=== PATIENT | female | born 1985 | race Two or more races ===

== ENCOUNTER 2024-09-06 09:30 | Outpatient (RCR) | payer MEDICAID, SELFPAY ==
--- NOTE | 2024-08-26 09:10 | PT.OIERPT ---
PT OP Initial Eval Patient Information Outpatient Physical Therapy Treatment Date: 08/26/24 Visit Reasons: CARPAL TUNNEL LEFT HAND Medical Diagnosis: G56.02 Treatment Dx #1: Left Hand Pain Treatment Dx #2: Left Hand Weakness Start of Care: 08/26/24 Date of Onset: 06/25/24 Smoking Status Smoking Status: Never smoker Initial Assessment Subjective: Pt is a 38 y/o female s/p left carpal tunnel release 06/25/24. Pt still has pain (5/10) and weakness. 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 Objective: Left Wrist AROM: all motions are WFL with end pain into extension Left Wrist MMTs: grossly 3/5 Color Card Maker Strength L: 25 lbs R: 80 lbs Gutierrez Pinch L: 8 lbs R: 12 lbs Palpation: TTP mild scar adhesion Assessment: Pt demonstrate left wrist pain and weakness s/p surgery leading to difficulty with ADLs. 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
--- NOTE | 2024-09-01 10:11 | PT.ODAYNRPT ---
PT Outpatient Daily Note OP Daily Note Outpatient Physical Therapy Treatment Date: 09/01/24 Visit Reasons: CARPAL TUNNEL LEFT HAND Subjective: Pt's left hand feels okay. Pt still has sensitivity when using her hand for chores or functional tasks. Objective: Please see flow chart for list of ther ex performed Assessment: tolerate exercises with minimal pain Plan: Continue with PT Length of Time (minutes) of Treatment: 30 Minutes Procedure Charges Therapeutic Exercise 30 minutes: Yes
--- NOTE | 2024-09-06 13:08 | PT.ODAYNRPT ---
PT Outpatient Daily Note OP Daily Note Outpatient Physical Therapy Treatment Date: 09/06/24 Visit Reasons: CARPAL TUNNEL LEFT HAND Subjective: Pt's hand was mildly sore after last session. No new concerns to report. Pt felt that yellow resistance was easy Objective: Please see flow chart for list of ther ex performed Assessment: progress all of patient's hand exercises to red resistance with good tolerance Plan: Continue with PT Length of Time (minutes) of Treatment: 30 Minutes Procedure Charges Therapeutic Exercise 30 minutes: Yes
== END 2024-09-06 23:59 | disposition home or self-care (01) ==
LOC: CPTX 09:30
PROVIDERS: PCP Physician Assistant; Referring Provider Physician Assistant; Visit Provider Physician Assistant
DX: M79.642 Pain in left hand (principal); M25.532 Pain in left wrist; R53.1 Weakness; Z98.890 Other specified postprocedural states
CPT/HCPCS: 97110; 97162

== ENCOUNTER 2024-09-09 09:16 | Outpatient (RCR) | payer MEDICAID, SELFPAY ==
--- NOTE | 2024-09-09 10:29 | PT.ODAYNRPT ---
PT Outpatient Daily Note OP Daily Note Outpatient Physical Therapy Treatment Date: 09/09/24 Visit Reasons: Left hand carpal tunnel Subjective: Pt reports hand has been feeling better. Objective: Please see flow sheet for ther ex list. Assessment: Pt demonstrates goof tolerance with interventiosn assigned. Plan: Continue with pOC. Length of Time (minutes) of Treatment: 30 Minutes Procedure Charges Therapeutic Exercise 30 minutes: Yes
== END 2024-10-06 23:59 | disposition home or self-care (01) ==
LOC: CPTX 09:16
PROVIDERS: PCP Physician Assistant; Referring Provider Physician Assistant; Visit Provider Physician Assistant
DX: M79.642 Pain in left hand (principal); M25.532 Pain in left wrist; R53.1 Weakness; Z98.890 Other specified postprocedural states
CPT/HCPCS: 97110